=== PATIENT | male | born 1965 | race Caucasian/White ===

== ENCOUNTER → 2019-11-02 | Outpatient (REF) | payer OTHER ==
[2019-11-02 17:58] LABS: APPEARANCE, URINE CLEAR (CLEAR); BACTERIA, URINE AUTO NEGATIVE (NEGATIVE); BILIRUBIN, URINE AUTO NEGATIVE (NEGATIVE); BLOOD, URINE BLOOD NEGATIVE (NEGATIVE); COLOR, URINE YELLOW (YELLOW); GLUCOSE, URINE (UA) AUTO 2+ mg/dL (NEGATIVE); KETONE, URINE AUTO NEGATIVE (NEGATIVE); LEUKOCYTE ESTERASE, URINE AUTO NEGATIVE (NEGATIVE); NITRITE, URINE AUTO NEGATIVE (NEGATIVE); PROTEIN, URINE AUTO NEGATIVE (NEGATIVE); RBC, URINE AUTO 0 /HPF (0-3); SPECIFIC GRAVITY URINE AUTO 1.023 (1.002-1.035); SQUAMOUS EPITHELIAL CELL UR AU 0 /HPF (0-6); UROBILINOGEN, URINE AUTO 0.2 mg/dL (0.0-2.0); WBC, URINE AUTO 0 /HPF (0-3)
== END ==
LOC: M SMT 16:58
PROVIDERS: ATTEND Nurse Practitioner Women's Health
DX: R30.0 Dysuria (principal)

== ENCOUNTER 2019-11-18 06:35 | Inpatient (IN) | payer OTHER ==
[~2019-11-18] VITALS: Ht 172.7 cm; Wt 117.9 kg
[~2019-11-18 06:35] MED LIST: ATOR80TA59 PO; HYDR12CA PO; LIDOCAINE 1% MDV 20ML VIAL SQ PRN; LOSA50TA88 PO; LR 1,000 ML IV ONE; LevoFLOXacin IV 500 MG in IV 1 EA IV ONE; METO1TAB7 PO
[2019-11-18] MEDS ORDERED: LevoFLOXacin 500MG/100ML IV BAG (J1956 PER 250MG) As Ordered ONE (06:56)
[2019-11-18] MEDS ORDERED: ROCURONIUM BROMIDE 50 MG/5 ML VIAL As Ordered ONE ×3 (07:05→11:20)
[2019-11-18] MEDS ORDERED: fentaNYL 250 MCG/5 ML INJECTION (J3010) As Ordered ONE (07:05)
[2019-11-18] MEDS ORDERED: propofoL 200 MG/20 ML VIAL As Ordered ONE (07:05)
[2019-11-18] MEDS ORDERED: LIDOCAINE 2% 100MG/5ML SDV (FOR ANES.) As Ordered ONE (07:05)
[2019-11-18] MEDS ORDERED: MIDAZOLAM INJ 2MG/2ML VIAL (J2250 PER 1MG) As Ordered ONE (07:05)
[2019-11-18] MEDS ORDERED: LACRILUBE (AKWA TEARS) OPHTH OINT 3.5 GM As Ordered ONE ×2 (07:14→13:33)
[2019-11-18] MEDS ORDERED: LIDOCAINE 1% SDV 30ML VIAL As Ordered ONE (07:15)
[2019-11-18] MEDS ORDERED: BUPIVACAINE HCL 0.25% 30ML VIAL As Ordered ONE (07:16)
[2019-11-18 07:23] LABS: INR 0.99; PROTHROMBIN TIME 12.8 SECONDS (11.8-14.0)
[2019-11-18] MEDS ORDERED: NS 1,000 ML IV SCH (07:35)
[2019-11-18] MEDS ORDERED: ACETAMINOPHEN TAB 650MG DOSE (2X325MG) PO PRN (07:45)
[2019-11-18] MEDS ORDERED: MORPHINE 2 MG/ML 1ML VIAL (J2270) IV PRN (07:45)
[2019-11-18] MEDS ORDERED: ONDANSETRON 4MG/2ML VIAL IV PRN ×2 (07:45→13:15)
[2019-11-18] MEDS ORDERED: ePHEDrine SULFATE 25 MG/5 ML(5MG/ML) SYRINGE As Ordered ONE (08:19)
[2019-11-18] MEDS ORDERED: ESMOLOL INJ 100MG/10ML VIAL As Ordered ONE (08:32)
[2019-11-18] MEDS ORDERED: MANNITOL 25% 12.5 GM/50 ML VIAL (J2150) As Ordered ONE (08:44)
[2019-11-18] MEDS ORDERED: dexameTHASONE 4 MG/ML 1ML VIAL (J1100 PER 1MG) As Ordered ONE ×2 (09:08→14:09)
[2019-11-18] MEDS ORDERED: HYDROmorphone HCL 2 MG/ML 1ML VIAL (J1170) As Ordered ONE (10:20)
[2019-11-18] MEDS ORDERED: fentaNYL 100 MCG/2 ML INJECTION (J3010) As Ordered ONE (10:20)
[2019-11-18] MEDS ORDERED: PHENYLephrine HCL 500 MCG/5 ML (100MCG/ML) SYRINGE (J2370) As Ordered ONE (11:34)
[2019-11-18] MEDS ORDERED: SUGAMMADEX SODIUM 500 MG/5 ML VIAL (BRIDION) As Ordered ONE (11:55)
[2019-11-18] MEDS ORDERED: ACETAMINOPHEN 1000MG 100ML IV BTL (OFIRMEV) (J0131 PER 10MG) As Ordered ONE ×2 (11:56→14:09)
[2019-11-18] MEDS ORDERED: KETOROLAC 60 MG/2 ML VIAL As Ordered ONE (11:57)
[2019-11-18] MEDS ORDERED: ONDANSETRON 4MG/2ML VIAL As Ordered ONE ×2 (11:57→14:09)
[2019-11-18] MEDS ORDERED: SUCCINYLCHOLINE 100 MG/5 ML SYRINGE (J0330) As Ordered ONE (13:09)
[2019-11-18] MEDS ORDERED: LR 1,000 ML IV SCH (13:15)
[2019-11-18] MEDS ORDERED: fentaNYL 100 MCG/2 ML INJECTION (J3010) IV PRN (13:15)
[2019-11-18] MEDS ORDERED: HYDROMORPHONE HCL 0.5 MG/ 0.5 ML SYRINGE (J1170 PER 1) IV PRN (13:15)
[2019-11-18] MEDS ORDERED: oxyCODONE 5MG TAB PO PRN (13:15)
--- NOTE | 2019-11-18 13:30 | ROOPDOC ---
[facility] Report Of Operation Report of Operation DATE OF PROCEDURE: 11/18/19 PREPROCEDURE DIAGNOSES: Right Renal Neoplasm. POSTPROCEDURE DIAGNOSES: Right Renal Neoplasm. PROCEDURE: Right Robotic-assisted Laparoscopic Partial Nephrectomy with Intraoperative Ultrasound for Tumor Mapping. SURGEON: Bebe Medeiros MD NURSING HOME AIDE: Mima Reese NP ANESTHESIA: General OPERATIVE INDICATIONS: This is a 54 year old male with a 3cm enhancing solid right renal neoplasm concerning for malignancy. He was brought to the operating room today for treatment. DESCRIPTION OF PROCEDURE: The patient was brought to the operating room and general anesthesia was induced. Prophylactic antibiotics were infused. A Templeton catheter was placed under sterile conditions. The patient was then placed in the left lateral decubitus position. All pressure points were appropriately padded and an axillary roll was placed. He was secured to the table with tape. The patient was then prepped and draped in the usual sterile fashion. The initial incision was for an 8mm port in line with the 11th rib along the lateral rectus margin. A Veress needle was then utilized to achieve the pneumoperitoneum. An 8mm port was then placed in through this incision and through which the camera was inserted. There were no injuries from Veress needle placement or initial trocar placement. The remaining ports were then placed under vision. The right hand robotic port was placed along the costal margin in line with the camera port. A 5 mm port was placed just inferior to the xyphoid for access for a liver retractor. Two left robotic ports were placed with one just inferior to the camera port, and the other between the anterior-superior iliac spine and the umbilicus. A 12mm pathologist assistant port was placed in between the camera port and the more cephalad left hand robotic port. The robot was then docked. We started by releasing a large amount of adhesions between the right colon and the abdominal wall. We then lifted up the liver with a laparoscopic locking Allis clamp. Next the right colon was dissected off of Gerota's fascia. We then Kocherized the duodenum. At this point the inferior vena cava (IVC) was identified. The patient had 2 right renal arteries. The most inferior one was readily identified as it coursed anterior to the IVC. It was carefully dissected. Next I identified the other artery just inferior to the renal vein. It also was carefully dissected. Next I had our area captain administer 12.5g of mannitol. Gerota's fascia was then opened and I defatted the kidney. On the superior and posterior aspect of the kidney the tumor was seen. It was partly exophytic. Ultrasound was then utilized to waylon the boundaries of the mass. Next 2 bulldog clamps were placed on each of the renal arteries and we began resecting the mass. The mass was resected completely and it appeared that we had a good margin. Once the mass was removed, the renorrhaphy was performed first by ligating all vessels in the base of resection with a 2-0 vicryl suture using figure of eight stitches. The capsule of the kidney was then reapproximated using 0-vicryl suture with Weck clips to cinch down the suture. Once this was done the clamps were removed and hemostasis was excellent. The warm ischemia time was 29 minutes. Next Fransisco was applied to the resection bed and the tumor was placed in an endocatch bag. A Jann Edouard drain was positioned just medial to the kidney. The liver retractor was then removed and the robot was undocked after confirming hemostasis within the abdomen. The pathologist assistant port site was utilized to extract the mass in the endocatch bag. The fascia of the extraction site was then closed with 0-vicryl ties placed with a DocDep fascial closure device. At this point, the abdomen was reinsufflated and we looked back in with the camera and there was no bleeding. At this point, all the incisions were thoroughly irrigated. We then closed the skin of each site using a running #4-0 subcuticular Monocryl stitch. The Jann Edouard drain was secured to the skin using #3-0 Ethilon suture. Local anesthetic was then applied to each incision and Dermabond was then applied and this marked the conclusion of the procedure. The patient was then taken out of the left lateral decubitus position, awakened from anesthesia and transported to the recovery room in stable condition. ESTIMATED BLOOD LOSS: 200mL INTRAOPERATIVE COMPLICATIONS: None SPECIMENS: Right renal neoplasm WARM ISCHEMIA TIME: 29 minutes NORMAL RIGHT RENAL PARENCHYMA SPARED: 95% PLAN: The patient will be admitted to the hospital postoperatively and he will be discharged home once his renal function is stable and he is tolerating a regular diet. BEBE MEDEIROS MD Nov 18, 2019 13:13
[2019-11-18 13:59] LABS: HEMATOCRIT 51.7 % (42.0-52.0); HEMOGLOBIN 16.8 g/dl (13.5-17.5); MEAN CORPUSCULAR HEMOGLOBIN 30.5 pg (27.0-33.0); MEAN CORPUSCULAR HGB CONC 32.5 g/dl (32.0-36.5); MEAN CORPUSCULAR VOLUME 93.8 fl (80.0-96.0); PLATELET COUNT, AUTOMATED 176 10^3/uL (150-450); RED BLOOD COUNT 5.51 10^6/uL (4.30-6.10); WHITE BLOOD COUNT 14.1 10^3/uL (4.0-10.0)
[2019-11-18 14:20] LABS: BLOOD UREA NITROGEN 18 MG/DL (7-18); CALCIUM LEVEL 8.7 MG/DL (8.5-10.1); CARBON DIOXIDE LEVEL 27 MEQ/L (21-32); CHLORIDE LEVEL 106 MEQ/L (98-107); CREATININE FOR GFR 1.24 MG/DL (0.70-1.30); GLOMERULAR FILTRATION RATE > 60.0 (>56); GLUCOSE, FASTING 175 MG/DL (70-100); POTASSIUM SERUM 4.3 MEQ/L (3.5-5.1); SODIUM LEVEL 140 MEQ/L (136-145)
[2019-11-18] MEDS: DOCUSATE SODIUM 100 MG CAP PO SCH ×2 (14:20→20:41)
[2019-11-18 14:30] VITALS: BP 109/73
[2019-11-18 15:00] VITALS: BP 108/76
[2019-11-18 16:00] VITALS: BP 112/77
[2019-11-18 17:00] VITALS: BP 126/90
[2019-11-18 18:00] VITALS: BP 127/90
[2019-11-18] MEDS: PERCOCET 5MG/325MG TAB PO PRN (20:41)
[2019-11-18] MEDS: ATORVASTATIN 20 MG TAB PO SCH (20:41)
[2019-11-18 22:00] VITALS: BP 128/90
[2019-11-19 02:00] VITALS: BP 137/81
[2019-11-19 06:00] VITALS: BP 131/84
[2019-11-19] MEDS ORDERED: LevoFLOXacin IV 500 MG in IV 1 EA IV ONE (08:00)
[2019-11-19 08:14] LABS: HEMATOCRIT 47.5 % (42.0-52.0); HEMOGLOBIN 15.7 g/dl (13.5-17.5); MEAN CORPUSCULAR HEMOGLOBIN 31.2 pg (27.0-33.0); MEAN CORPUSCULAR HGB CONC 33.1 g/dl (32.0-36.5); MEAN CORPUSCULAR VOLUME 94.2 fl (80.0-96.0); PLATELET COUNT, AUTOMATED 186 10^3/uL (150-450); RED BLOOD COUNT 5.04 10^6/uL (4.30-6.10)
[2019-11-19 08:48] LABS: BLOOD UREA NITROGEN 23 MG/DL (7-18); CARBON DIOXIDE LEVEL 22 MEQ/L (21-32); CHLORIDE LEVEL 108 MEQ/L (98-107); CREATININE FOR GFR 1.09 MG/DL (0.70-1.30); GLOMERULAR FILTRATION RATE > 60.0 (>56); GLUCOSE, FASTING 148 MG/DL (70-100); POTASSIUM SERUM 4.9 MEQ/L (3.5-5.1); SODIUM LEVEL 138 MEQ/L (136-145)
--- NOTE | 2019-11-19 08:55 | IPNPDOC ---
Subjective Review oF Systems Chief Complaint The patient is a 54-year-old male admitted with a reason for visit of Renal Mass. Events since Last Encounter No acute events o/n. Good pain control. No n/v. Has not ambulated yet. No f/c/ns. Objective Physical Examination General Exam: Alert, Cooperative, No Acute Distress ABDOMEN EXAM: Soft, Tenderness (minimal), Other (incisions clean/dry/intact; ERIC w/ serosanguinous output and some drainage around the tubing onto gauze pad) Vital Signs/I&O Vital Signs Date Time Temp Pulse Resp B/P (MAP) Pulse Ox O2 Delivery O2 Flow Rate FiO2 11/19/19 06:00 97.6 93 18 131/84 (100) 92 Room Air 11/18/19 22:00 3.0 I&O- Last 24 Hours up to 6 AM 11/19/19 06:00 Intake Total 3120 ml Output Total 3025 ml Balance 95 ml Laboratory Data Labs 24H Laboratory Tests 2 11/18/19 13:27: Nucleated Red Blood Cells % (auto) 0.0, Anion Gap 7L, Glomerular Filtration Rate > 60.0, Calcium Level 8.7 11/19/19 08:03: Nucleated Red Blood Cells % (auto) 0.0 CBC/BMP Laboratory Tests 11/18/19 13:27 11/19/19 08:03 Assessment/Plan Date Seen The patient was seen on 11/19/19. Patient Summary This is a 54 y/o M POD1 s/p R robotic partial nephrectomy. He feels well. He has had 800cc of serosanguinous drainage from his ERIC since surgery yesterday. UOP is good. Hb is stable at 15.7. Cr 1.1. Vitals stable. Plan/VTE VTE Prophylaxis Ordered?: Yes VTE Exclusion Mechanical Proph: N/A:VTE Prophy Ordered Plan/Urinary Catheter Urinary Catheter: D/C Tempelton Plan - d/c Templeton - d/c IVF - monitor output from ERIC drain -> if continues to be high, will check another Hb this afternoon - strict I/Os - cont home meds - percocet prn pain - ambulate - SCDs when in bed - advance diet as tolerated - likely discharge home tomorrow if Hb remains stable BEBE MEEDIROS MD Nov 19, 2019 08:55
[2019-11-19] MEDS: hydroCHLOROthiazide 12.5 MG CAPSULE PO SCH (09:42)
[2019-11-19] MEDS: METOPROLOL SUCC (TopROL XL) 50MG **XL** TAB PO SCH (09:44)
[2019-11-19] MEDS: LOSARTAN 50 MG TAB PO SCH (09:44)
[2019-11-19] MEDS: DOCUSATE SODIUM 100 MG CAP PO SCH ×2 (09:44→20:01)
[2019-11-19] MEDS: PERCOCET 5MG/325MG TAB PO PRN ×3 (09:44→17:38)
[2019-11-19 10:00] VITALS: BP 112/65
[2019-11-19 14:00] VITALS: BP 100/56
[2019-11-19 15:00] LABS: HEMOGLOBIN 14.7 g/dl (13.5-17.5); MEAN CORPUSCULAR HGB CONC 32.7 g/dl (32.0-36.5); MEAN CORPUSCULAR VOLUME 94.9 fl (80.0-96.0); PLATELET COUNT, AUTOMATED 185 10^3/uL (150-450); RED BLOOD COUNT 4.74 10^6/uL (4.30-6.10); WHITE BLOOD COUNT 13.9 10^3/uL (4.0-10.0)
[2019-11-19 18:00] VITALS: BP 113/66
[2019-11-19] MEDS: ATORVASTATIN 20 MG TAB PO SCH (20:02)
[2019-11-19 20:10] VITALS: BP 125/67
[2019-11-20 02:54] VITALS: BP 128/70
[2019-11-20] MEDS: PERCOCET 5MG/325MG TAB PO PRN ×3 (03:14→14:10)
[2019-11-20 05:50] VITALS: BP 120/66
--- NOTE | 2019-11-20 07:59 | IPNPDOC ---
Subjective Review oF Systems Chief Complaint The patient is a 54-year-old male admitted with a reason for visit of Renal Mass. Events since Last Encounter No acute events o/n. Good pain control. No n/v. Ambulating well. No f/c/ns. Objective Physical Examination General Exam: Alert, Cooperative, No Acute Distress ABDOMEN EXAM: Soft, Tenderness (minimal), Other (incisions clean/dry/intact; ERIC w/ serosanguinous output) Vital Signs/I&O Vital Signs Date Time Temp Pulse Resp B/P (MAP) Pulse Ox O2 Delivery O2 Flow Rate FiO2 11/20/19 05:50 99.5 81 16 120/66 (84) 96 Room Air 11/18/19 22:00 3.0 I&O- Last 24 Hours up to 6 AM 11/20/19 06:00 Intake Total 1940 ml Output Total 1195 ml Balance 745 ml Laboratory Data Labs 24H Laboratory Tests 2 11/19/19 08:03: Nucleated Red Blood Cells % (auto) 0.0, Anion Gap 8, Glomerular Filtration Rate > 60.0, Calcium Level 8.0L 11/19/19 14:46: Nucleated Red Blood Cells % (auto) 0.0 CBC/BMP Laboratory Tests 11/19/19 08:03 11/19/19 14:46 Assessment/Plan Date Seen The patient was seen on 11/20/19. Patient Summary This is a 54 y/o M POD2 s/p R robotic partial nephrectomy. Morning labs are still pending. Good UOP. ERIC output and drainage around the tubing has decreased. Plan/VTE VTE Prophylaxis Ordered?: Yes VTE Exclusion Mechanical Proph: N/A:VTE Prophy Ordered Plan - check morning labs - percocet prn pain - continue home meds - strict I/Os - SCDs when in bed - ambulate - incentive spirometry - regular diet - possible discharge home later today BEBE MEDEIROS MD Nov 20, 2019 07:59
[2019-11-20 08:08] LABS: HEMATOCRIT 42.3 % (42.0-52.0); HEMOGLOBIN 13.9 g/dl (13.5-17.5); MEAN CORPUSCULAR HEMOGLOBIN 30.8 pg (27.0-33.0); MEAN CORPUSCULAR HGB CONC 32.9 g/dl (32.0-36.5); MEAN CORPUSCULAR VOLUME 93.6 fl (80.0-96.0); PLATELET COUNT, AUTOMATED 166 10^3/uL (150-450); RED BLOOD COUNT 4.52 10^6/uL (4.30-6.10); WHITE BLOOD COUNT 11.6 10^3/uL (4.0-10.0)
[2019-11-20 08:26] LABS: BLOOD UREA NITROGEN 23 MG/DL (7-18); CALCIUM LEVEL 7.8 MG/DL (8.5-10.1); CARBON DIOXIDE LEVEL 27 MEQ/L (21-32); CHLORIDE LEVEL 101 MEQ/L (98-107); CREATININE FOR GFR 1.09 MG/DL (0.70-1.30); GLOMERULAR FILTRATION RATE > 60.0 (>56); GLUCOSE, FASTING 118 MG/DL (70-100); SODIUM LEVEL 136 MEQ/L (136-145)
[2019-11-20 09:13] VITALS: BP 134/77
[2019-11-20] MEDS: LOSARTAN 50 MG TAB PO SCH (09:13)
[2019-11-20] MEDS: METOPROLOL SUCC (TopROL XL) 50MG **XL** TAB PO SCH (09:13)
[2019-11-20] MEDS: DOCUSATE SODIUM 100 MG CAP PO SCH (09:14)
[2019-11-20] MEDS: hydroCHLOROthiazide 12.5 MG CAPSULE PO SCH (09:14)
[2019-11-20 12:37] LABS: HEMATOCRIT 43.3 % (42.0-52.0); HEMOGLOBIN 14.4 g/dl (13.5-17.5)
[2019-11-20] MEDS ORDERED: PERCOCET PO (13:12)
[2019-11-20] MEDS ORDERED: DOCU100C16 PO (13:12)
--- NOTE | 2019-11-21 11:39 | DSES ---
DATE OF ADMISSION: 11/18/2019 DATE OF DISCHARGE: 11/20/2019 ADMISSION DIAGNOSIS: Right renal neoplasm. DISCHARGE DIAGNOSIS: Right renal cell carcinoma. ADMITTING PHYSICIAN: Dr. James Santiago. DISCHARGE PHYSICIAN: Dr. James Santiago. PROCEDURES PERFORMED: Right robotic assisted laparoscopic partial nephrectomy on 11/18/2019. HISTORY OF PRESENT ILLNESS: This is 54-year-old male who was found to have an enhancing solid 3 cm lesion on his right kidney. He underwent the above listed procedure for treatment and was admitted postoperatively. HOSPITAL COURSE: The patient was admitted to the hospital after undergoing a right robotic partial nephrectomy on 11/18/2019, 2019. On postoperative day 1, he was noted to have good pain control. Of note he did have a moderate amount of output from his Jann-Edouard drain and it appeared to be serosanguineous. He also had a moderate amount of drainage around the tubing. Because of this we followed his blood count very closely. His blood count did drop from 16.8 to 15.7 on postoperative Day 1 and then when we rechecked it again on postoperative day 1 it was 14.7. His vital signs remained stable throughout the day. He was allowed to ambulate and he ambulated well without any difficulty. His catheter was removed and he voided without difficulty. His urine output on postoperative day 1 was very good. On postoperative day 2, his hemoglobin was noted to drop a little bit more at 13.9 and during this time, his vital signs remained stable. Also of note, the amount of drainage from his Jann-Edouard drain started to decrease significantly on postoperative day 2. He also had less drainage around the tubing on postoperative day 2. We rechecked his hemoglobin again later on postoperative day 2 and it was stable. It went up from 13.9 to 14.4. Since his vitals remained stable and his hemoglobin remained stable, he was deemed ready for discharge home. Of note, throughout his hospital stay, his renal function remained very good. At the time of discharge, his creatinine was 1.1. His urine output throughout his hospital stay was also very good. His Jann-Edouard drainage was removed on postoperative 2 and he was discharged home. He was discharged home with the plan to followup in the clinic in approximately 1-2 weeks for postoperative check and to discuss pathology results. BRANDON
== END 2019-11-20 14:20 | disposition home or self-care (01) | DRG 442 ==
LOC: M OR 06:35 → M MS5PR 14:26
PROVIDERS: ADMIT Urology; ATTEND Urology
PROC: 8E0W4CZ Robotic Assisted Procedure of Trunk Region, Percutaneous Endoscopic Approach (ICD-10-PCS; 2019-11-18)
PROC: 0TB04ZZ Excision of Right Kidney, Percutaneous Endoscopic Approach (ICD-10-PCS; principal; 2019-11-18 07:30)
DX: C64.1 Malignant neoplasm of right kidney, except renal pelvis (principal); I10 Essential (primary) hypertension; E78.5 Hyperlipidemia, unspecified; Z79.899 Other long term (current) drug therapy; Z88.0 Allergy status to penicillin; Z91.018 Allergy to other foods